=== PATIENT | female | born 1960 | race African-American/Black ===

== ENCOUNTER → 2018-02-17 | Outpatient (CLI) | payer OTHER | END | disposition home or self-care (01) | LOC: ECT 09:45 | DX: F33.3 Major depressive disorder, recurrent, severe with psychotic symptoms (principal); F25.9 Schizoaffective disorder, unspecified; F95.9 Tic disorder, unspecified; I10 Essential (primary) hypertension; Z98.84 Bariatric surgery status; Z90.49 Acquired absence of other specified parts of digestive tract; M79.7 Fibromyalgia; Z98.1 Arthrodesis status; R45.851 Suicidal ideations ==

== ENCOUNTER 2018-02-19 09:21 | Outpatient (RCR) | payer OTHER ==
[~2018-02-19] VITALS: Ht 175.3 cm; Wt 74.8 kg
[2018-02-19] MEDS ORDERED: Succinylcholine 20mg/ml 10ml vial ONE ×2 (09:22)
[2018-02-19] MEDS ORDERED: Methohexital Sodium Syr 100mg/10ml IVP ONE ×2 (09:22)
[2018-02-19] MEDS ORDERED: NS 500ML ONE ×2 (09:22)
[2018-02-19 10:01] VITALS: BP 136/83
[2018-02-19] MEDS ORDERED: Sodium Chloride 500ML 500 ML IV ONE (10:20)
[2018-02-19 10:25] VITALS: BP 173/83
[2018-02-19 10:30] VITALS: BP 141/79
[2018-02-19 10:35] VITALS: BP 113/70
[2018-02-19 10:40] VITALS: BP 129/68
[2018-02-19 13:15] VITALS: BP 136/83
[2018-02-21] MEDS ORDERED: NS 500ML ONE (07:00)
[2018-02-21] MEDS ORDERED: Succinylcholine 20mg/ml 10ml vial ONE (07:00)
[2018-02-21] MEDS ORDERED: Methohexital Sodium Syr 100mg/10ml IVP ONE (07:00)
[2018-02-21 09:32] VITALS: BP 117/68
[2018-02-21] MEDS ORDERED: Sodium Chloride 500ML 500 ML IV ONE (09:49)
[2018-02-21 09:50] VITALS: BP 149/65
[2018-02-21 09:55] VITALS: BP 127/45
[2018-02-21 10:00] VITALS: BP 133/63
[2018-02-21 10:05] VITALS: BP 126/47
[2018-02-24] MEDS ORDERED: Methohexital Sodium Syr 100mg/10ml IVP ONE (06:30)
[2018-02-24] MEDS ORDERED: NS 500ML ONE (06:30)
[2018-02-24] MEDS ORDERED: Succinylcholine 20mg/ml 10ml vial ONE (06:30)
[2018-02-24 09:25] VITALS: BP 119/71
[2018-02-24] MEDS ORDERED: Sodium Chloride 500ML 500 ML IV ONE (09:43)
[2018-02-24 09:45] VITALS: BP 183/66
[2018-02-24 09:50] VITALS: BP 147/70
[2018-02-24 09:55] VITALS: BP 132/66
[2018-02-24 10:00] VITALS: BP 121/63
[2018-02-26 08:56] VITALS: BP 106/65
[2018-02-26] MEDS ORDERED: Sodium Chloride 500ML 500 ML IV ONE (09:10)
[2018-02-26 09:15] VITALS: BP 155/90
[2018-02-26 09:20] VITALS: BP 134/68
[2018-02-26 09:25] VITALS: BP 123/76
[2018-02-26 09:30] VITALS: BP 135/65
[2018-02-28] MEDS ORDERED: Methohexital Sodium Syr 100mg/10ml IVP ONE (06:00)
[2018-02-28] MEDS ORDERED: Succinylcholine 20mg/ml 10ml vial ONE ×2 (06:00)
[2018-02-28] MEDS ORDERED: NS 500ML ONE (06:00)
[2018-02-28 09:10] VITALS: BP 123/66
[2018-02-28] MEDS ORDERED: Sodium Chloride 500ML 500 ML IV ONE (09:26)
[2018-02-28 09:30] VITALS: BP 182/77
[2018-02-28 09:35] VITALS: BP 129/62
[2018-02-28 09:40] VITALS: BP 113/56
[2018-02-28 09:45] VITALS: BP 112/57
[2018-02-28 09:49] VITALS: BP 123/66
[2018-03-03] MEDS ORDERED: NS 500ML ONE (07:00)
[2018-03-03] MEDS ORDERED: Succinylcholine 20mg/ml 10ml vial ONE (07:00)
[2018-03-03] MEDS ORDERED: Methohexital Sodium Syr 100mg/10ml IVP ONE (07:00)
[2018-03-03 08:47] VITALS: BP 124/77
[2018-03-03] MEDS ORDERED: Sodium Chloride 500ML 500 ML IV ONE (09:08)
[2018-03-03] MEDS ORDERED: Atropine Sulfate 0.4mg/ml inj IVP PRN (09:08)
[2018-03-03 09:10] VITALS: BP 132/60
[2018-03-03 09:15] VITALS: BP 132/61
[2018-03-03 09:20] VITALS: BP 138/59
[2018-03-03 09:25] VITALS: BP 132/64
== END 2018-03-20 | disposition home or self-care (01) ==
LOC: ECT 09:21
DX: F33.3 Major depressive disorder, recurrent, severe with psychotic symptoms (principal)
CPT/HCPCS: 90870; J0330; J7040

== ENCOUNTER 2019-04-08 07:39 | Outpatient (RCR) | payer OTHER ==
[~2019-04-08] VITALS: Ht 175.3 cm; Wt 70.3 kg
[~2019-04-08 07:39] MED LIST: Methohexital Sodium Syr 100mg/10ml IVP ONE; NS 500ML ONE; Succinylcholine 20mg/ml 10ml vial ONE
[2019-04-08] MEDS ORDERED: Succinylcholine 20mg/ml 10ml vial ONE (07:40)
[2019-04-08] MEDS ORDERED: Methohexital Sodium Syr 100mg/10ml IVP ONE (07:40)
[2019-04-08] MEDS ORDERED: NS 500ML ONE (07:40)
[2019-04-08 09:40] VITALS: BP 166/83
[2019-04-08 09:55] VITALS: BP 159/72
[2019-04-08 10:00] VITALS: BP 164/65
[2019-04-08 10:05] VITALS: BP 147/72
[2019-04-08 10:10] VITALS: BP 156/61
[2019-04-10] MEDS ORDERED: NS 500ML ONE (07:00)
[2019-04-10] MEDS ORDERED: Succinylcholine 20mg/ml 10ml vial ONE (07:00)
[2019-04-10] MEDS ORDERED: Methohexital Sodium Syr 100mg/10ml IVP ONE (07:00)
[2019-04-10 09:04] VITALS: BP 144/70
[2019-04-10 09:15] VITALS: BP 152/59
[2019-04-10 09:20] VITALS: BP 148/57
[2019-04-10 09:25] VITALS: BP 140/58
[2019-04-10 09:30] VITALS: BP 145/57
[2019-04-13] MEDS ORDERED: Succinylcholine 20mg/ml 10ml vial ONE (09:00)
[2019-04-13] MEDS ORDERED: Methohexital Sodium Syr 100mg/10ml IVP ONE (09:00)
[2019-04-13] MEDS ORDERED: NS 500ML ONE (09:00)
[2019-04-13 09:13] VITALS: BP 144/69
[2019-04-13 09:25] VITALS: BP 186/69
[2019-04-13 09:30] VITALS: BP 164/61
[2019-04-13 09:35] VITALS: BP 150/60
[2019-04-13 09:40] VITALS: BP 121/54
[2019-04-15] MEDS ORDERED: Succinylcholine 20mg/ml 10ml vial ONE (09:00)
[2019-04-15] MEDS ORDERED: Methohexital Sodium Syr 100mg/10ml IVP ONE (09:00)
[2019-04-15] MEDS ORDERED: NS 500ML ONE (09:00)
[2019-04-15 10:08] VITALS: BP 140/73
[2019-04-15 10:25] VITALS: BP 176/66
[2019-04-15 10:30] VITALS: BP 159/68
[2019-04-15 10:35] VITALS: BP 155/68
[2019-04-15 10:40] VITALS: BP 146/63
[2019-04-17 09:12] VITALS: BP 129/78
[2019-04-17 09:25] VITALS: BP 162/73
[2019-04-17 09:30] VITALS: BP 153/70
[2019-04-17 09:35] VITALS: BP 143/68
[2019-04-17 09:40] VITALS: BP 129/64
== END 2019-04-19 | disposition home or self-care (01) ==
LOC: ECT 07:39
DX: F33.3 Major depressive disorder, recurrent, severe with psychotic symptoms (principal)
CPT/HCPCS: 90870; J0330; J7040

== ENCOUNTER 2019-04-22 08:53 | Outpatient (RCR) | payer OTHER | END 2019-05-20 | disposition home or self-care (01) | LOC: ECT 08:53 | DX: F33.3 Major depressive disorder, recurrent, severe with psychotic symptoms (principal); Z53.9 Procedure and treatment not carried out, unspecified reason ==